=== PATIENT | female | born 1975 | race Caucasian/White ===

== ENCOUNTER → 2019-04-20 | Emergency (ER) | payer OTHER ==
[~2019-04-20] VITALS: Ht 172.7 cm; Wt 59.0 kg
[~2019-04-20] MED LIST: ALDACTONE25 MG PO; BENADRYL25 MG PO; EFFEXOR XR37.5 MG PO; HYDROCODON-ACE1 EA11 PO; PEPCID20 MG PO; XYZAL5 MG PO
== END ==
LOC: ED 21:30
DX: T78.1XXA Other adverse food reactions, not elsewhere classified, initial encounter (principal); Z91.018 Allergy to other foods; Z91.041 Radiographic dye allergy status; Z88.1 Allergy status to other antibiotic agents; Z79.899 Other long term (current) drug therapy
CPT/HCPCS: 96374; 96375; 99283-25; J1200; J2930

== ENCOUNTER 2022-03-14 05:45 | Day surgery (SDC) | payer OTHER ==
[~2022-03-14] VITALS: Ht 172.7 cm; Wt 61.4 kg
[~2022-03-14 05:45] MED LIST changes: +PREDNISONE20 MG PO
--- NOTE | 2022-03-14 09:34 | NUR ---
03/14/22 0934 Xiomara Rose 0928 PT TO PACU SLEEPING WITH ORAL AIRWAY IN PLACE. O2 ON VIA MASK FOGGING NOTED IN MASK.
--- NOTE | 2022-03-14 13:05 | NUR ---
1005- PATIENT BACK TO DAY SURGERY. REPORT RECIEVED FROM GURPREET JONES. PATIENT IS DROWSY. BREATHING EQUAL AND UNLABORED. OXYGEN SATRUATIONS ABOVE 95% ON ROOM AIR. PATIENT HAS NO BLEEDING FROM NOSE. PATIENT DENIES ANY PAIN OR NAUSEA. IVF INFUSING. WATER AND PUDDING GIVEN TO PATIENT. SCD'S APPLIED. CALL LIGHT WITHIN REACH NO FUTHER NEEDS. AT BEDSIDE. 1010 PATIENT REQUESTING TO BE ABLE TO GO HOME WITH JENNIFER. CALLED OBTAINED ORDERS FOR PHARMACY. 1025 [facility] CALLED.
--- NOTE | 2022-03-14 14:34 | OR ---
[facility] [address], [place] [address] Signed DATE OF OPERATION: 03/14/2022 SURGEON: Shannon Ren MD PREOPERATIVE DIAGNOSES: 1. Persistent acute sinusitis. 2. Chronic frontal sinusitis. 3. Chronic ethmoiditis. 4. Chronic sphenoiditis. 5. Chronic maxillary sinusitis. POSTOPERATIVE DIAGNOSES: 1. Persistent acute sinusitis. 2. Chronic frontal sinusitis. 3. Chronic ethmoiditis. 4. Chronic sphenoiditis. 5. Chronic maxillary sinusitis. PROCEDURES: 1. Endoscopic frontal ethmoidectomy, 79512-78. 2. Endoscopic bilateral sphenoidotomies, 44323-85. 3. Bilateral maxillary antrostomies, endoscopic, 99778-72. INDICATIONS: This patient has a history of recurring sinus infections and then beginning a couple of months ago the patient had acute episode of paranasal pain, headaches, purulent discharge, and increased nasal obstruction and all the symptoms of acute sinusitis. The patient has been tried on multiple antibiotics and currently is on her sixth antibiotic with prednisone and has failed to clear. The patient also has progressive nasal obstruction and sinus headaches. She has known inhalant allergies and is currently on immunotherapy and taking decongestants, antihistamines, and irrigating and also uses nasal steroid spray and despite that her disease has worsened. CT scan performed had marked changes from a year ago showing blockage in the ethmoids and the maxillary sinuses. Because of the failure to respond medically, above procedures were indicated. DESCRIPTION OF PROCEDURE: The patient was placed in the supine position, had an orotracheal intubation, was placed under general anesthesia. The left side was approached first. A 1.5 mL, 1% lidocaine with 1:200,000 epinephrine was injected in the uncinate process in the anterior portion of middle turbinate. The anterior inferior portion of the middle turbinate was trimmed Electronically Signed By: SHANNON REN MD 03/14/22 1434 PATIENT NAME: SHARON FARLEY OPERATIVE REPORT DATE OF : 79 REPORT #: [id number] PHYSICIAN: SHANNON REN MD PCP: EVELIO YARBROUGH PA-C REPORT IS CONFIDENTIAL AND NOT TO BE RELEASED WITHOUT AUTHORIZATION [facility] [address], [place] [address] Signed away with a Thru-Cut ethmoid punch, Kerrison forceps, and microdebrider. The uncinate process was incised with a sickle knife and then it was removed with backbiting forceps with the Thru-Cut ethmoid punch. A little bit of the anterior fontanelle was removed, mostly posterior fontanelle to open up the maxillary ostium three times bigger than nature. The ethmoid bulla was opened with the curette and then going from air cell to air cell through the lamina of the middle turbinate and the posterior ethmoids and a transethmoidal sphenoidotomy into the larger of the two sphenoid sinuses. Once the ceiling of the sphenoid sinus could be visualized as it was entered low and medial, then that rostrum of the sphenoid was removed with a Kerrison forceps. Switching to a 70-degree scope, then the procedure was carried forward against the base of skull up in the frontal sinus. The frontal sinus was from the ethmoid labyrinth by some sagittal and coronal air cells. These were removed entirely to open up the frontal sinus as much as possible. The frontal sinus was a lateral pneumatization and the digital portion of what was going to be the frontal sinus was opened and removed medially as a small cell. A bit of NasoPore with mupirocin ointment was placed up the nasal cavity. Same thing was done on the right side without much variation at all. Uncinectomy was performed in a similar fashion, the maxillary ostium widened mostly in the posterior fontanelle, but a little bit anteriorly. Complete ethmoidectomy was done in the same fashion as the left. Transethmoidal sphenoidotomy was made into the much smaller sphenoid sinus. Then, the base of skull dissected out, coming anteriorly up into the frontal sinus, the Bee Warerison frontal sinus punch was used to remove the beak of the frontal sinus opening up widely. The entire sinus labyrinth was marsupialized into one common cavity. Estimated blood loss about 100 mL. There were no complications. More NasoPore was placed on the right side. The patient went to the recovery room in good condition. Shannon Ren MD [facility] /[id number] Copies: ~ Electronically Signed By: SHANNON REN MD 03/14/22 1434 PATIENT NAME: SHARON FARLEY OPERATIVE REPORT DATE OF : 79 REPORT #: [id number] PHYSICIAN: SHANNON REN MD PCP: EVELIO YARBROUGH PA-C REPORT IS CONFIDENTIAL AND NOT TO BE RELEASED WITHOUT AUTHORIZATION
--- NOTE | 2022-03-14 14:41 | NUR ---
1045 PATIENT IS ALERT AND ORIENTED. BREATHING EQUAL AND UNLABORED. PATIENT ABLE TO AMBULATE TO THE RESTROOM AND VOID CLEAR AND YELLOW URINE. TOLERATED AMBULATION WELL. 1210 PATIENT DISCHARGE INSTRUCTIONS GIVEN. NO QUESTIONS AT THIS TIME. PATIENT IV D/C'D WNL. PATIENT WAS WHEELED OUT OF FACILITY TO PRIVATE AUTO.
== END 2022-03-14 12:10 | disposition home or self-care (01) ==
LOC: DS 05:45
PROVIDERS: ATTEND Otolaryngology
PROC: 09TU8ZZ Resection of Right Ethmoid Sinus, Via Natural or Artificial Opening Endoscopic (ICD-10-PCS; 2022-03-14)
PROC: 09JY8ZZ Inspection of Sinus, Via Natural or Artificial Opening Endoscopic (ICD-10-PCS; 2022-03-14)
PROC: 09TV8ZZ Resection of Left Ethmoid Sinus, Via Natural or Artificial Opening Endoscopic (ICD-10-PCS; principal; 2022-03-14 07:00)
DX: J01.91 Acute recurrent sinusitis, unspecified (principal); J32.4 Chronic pansinusitis; Z88.8 Allergy status to other drugs, medicaments and biological substances
CPT/HCPCS: J0131; J0330; J0461; J1100; J1885; J2250; J2405; J2704; J2765; J2930; J3010; J7121

== ENCOUNTER 2023-04-23 17:33 | Emergency (ER) | payer OTHER ==
[~2023-04-23] VITALS: Ht 172.7 cm; Wt 64.8 kg
--- OUTSIDE RECORDS SUMMARY | ~2023-04-23 | XMS | Continuity of Care Document ---
Demographics + + + | Address | [address] | | | [place] [address] | + + + | Preferred Language | Unknown | + + + | Marital Status | | + + + | Rastafari Affiliation | Unknown | + + + | Race | White | + + + | Ethnic Group | or | + + + Author + + + | Author | [facility] | + + + | Organization | [facility] | + + + | Address | [address] | | | [place] [address] | + + + | Phone | | + + + Care Team Providers + + + + | Care Bait Digger Name | Role | Phone | + + + + Unavailable | Unavailable | + + + + Unavailable | Unavailable | + + + + Unavailable | Unavailable | + + + + Allergies and Intolerances + + + + + + | date | description | facility | reaction | severity | + + + + + + | (no date) | Urticaria | [facility] | (no reaction) | (no severity) | | [facility] | | | + + + + + + | (no date) | Valacyclovir | [facility] | (no reaction) | (no severity) | | | [facility] | | | + + + + + + | (no date) | Promethazine | [facility] | (no reaction) | (no severity) | | | [facility] | | | + + + + + + | (no date) | Itching | [facility] | (no reaction) | (no severity) | | | [facility] | | | + + + + + + | (no date) | Valacyclovir | [facility] | (no reaction) | (no severity) | | | [facility] | | | + + + + + + | (no date) | valacyclovir | [facility] | (no reaction) | (no severity) | | | [facility] | | | + + + + + + | (no date) | Promethazine | [facility] | (no reaction) | (no severity) | | | [facility] | | | + + + + + + | (no date) | promethazine | [facility] | (no reaction) | (no severity) | | | [facility] | | | + + + + + + | (no date) | Promethazine | [facility] | (no reaction) | (no severity) | | | [facility] | | | + + + + + + | (no date) | Valacyclovir | [facility] | (no reaction) | (no severity) | | | [facility] | | | + + + + + + Encounters No information. Functional Status No information. Immunizations No information. Medications + + + + | date | description | facility | + + + + | 2022-03-15 00:00 | FAMOTIDINE | [facility] | + + + + | 2022-11-02 00:00 | FAMOTIDINE | [facility] | + + + + | 2022-03-15 00:00 | DIPHENHYDRAMINE HCL | [facility] | + + + + | 2022-11-02 00:00 | DIPHENHYDRAMINE HCL | [facility] | + + + + | 2022-03-15 00:00 | SPIRONOLACTONE | [facility] | + + + + | 2022-11-02 00:00 | SPIRONOLACTONE | [facility] | + + + + | 2022-11-02 00:00 | METOCLOPRAMIDE HCL | [facility] | + + + + | 2022-11-02 00:00 | ONDANSETRON | [facility] | + + + + | 2022-03-15 00:00 | predniSONE | [facility] | + + + + | 2022-03-15 00:00 | VENLAFAXINE HCL | [facility] | + + + + | 2022-11-02 00:00 | VENLAFAXINE HCL | [facility] | + + + + | 2022-03-15 00:00 | LEVOCETIRIZINE | [facility] | | | DIHYDROCHLORIDE | | + + + + Problems + + + + | date | description | facility | + + + + | 2016-11-12 00:00 | Pain in pelvis | [facility] | + + + + | 2022-09-19 15:01 | CORPUS LUTEUM CYST OF LEFT | [facility] | | | [facility] | | + + + + | 2022-09-19 15:01 | PELVIC AND PERINEAL PAIN | [facility] | + + + + | 2022-09-19 15:01 | RIGHT LOWER QUADRANT PAIN | [facility] | + + + + | 2022-11-02 00:00 | Migraine headache | [facility] | + + + + | 2022-11-02 15:59 | MIGRAINE, UNSP, NOT | [facility] | | | INTRACTABLE, WITHOUT STATUS | | | | SD | | + + + + | 2022-11-02 15:59 | OTHER SENIOR LIVING (CURRENT) | [facility] | | | DRUG THERAPY | | + + + + | 2022-11-02 15:59 | ALLERGY STATUS TO OTH | [facility] | | | DRUG/MEDS/BIOL SUBST STATUS | | | | | | + + + + Procedures + + + + | date | description | facility | + + + + | 2022-03-14 00:00 | Endoscopic sinus surgery | [facility] | + + + + | 2022-03-14 00:00 | Endoscopic sinus surgery | [facility] | + + + + Results/Labs +--------+--------+ +---------+--------+---------+ | test | date | facility | value | unit | notes | +--------+--------+ +---------+--------+---------+ + + | Result panel 1 | + + + + + + + + + | | 2022-03-13 | [facility] | NEGATIVE | (missing) | (missing) | | (unavailable | 08:25 | [place] [facility] | | | | + + + + + + + + + | Result panel 2 | + + + + + + + + + | | 2022-03-13 | [facility] | NEGATIVE | (missing) | (missing) | | (unavailable | 08:25 | [facility] | | | | + + + + + + + + + | Result panel 3 | + + + + + + + + + | | 2022-03-13 | [facility] | NEGATIVE | (missing) | (missing) | | (unavailable | 08:25 | [facility] | | | | + + + + + + + + + | Result panel 4 | + + + + + + + + + | | 2022-03-13 | [facility] | NEGATIVE | (missing) | (missing) | | (unavailable | 08:25 | [facility] | | | | + + + + + + + + + | Result panel 5 | + + + + + +--------+ + + | | 2022-03-13 | [facility] | 10.1 | (missing) | (missing) | | (unavailable | 09:34 | [facility] | | | | + + + +--------+ + + + + | Result panel 6 | + + + + + +--------+ + + | | 2022-03-13 | [facility] | 4.14 | (missing) | (missing) | | (unavailable | 09:34 | [facility] | | | | + + + +--------+ + + + + | Result panel 7 | + + + + + +--------+ + + | | 2022-03-13 | [facility] | 12.8 | (missing) | (missing) | | (unavailable | 09:34 | [facility] | | | | + + + +--------+ + + + + | Result panel 8 | + + + + + +--------+ + + | | 2022-03-13 | [facility] | 39.2 | (missing) | (missing) | | (unavailable | 09:34 | [facility] | | | | + + + +--------+ + + + + | Result panel 9 | + + + + + +--------+ + + | | 2022-03-13 | [facility] | 94.6 | (missing) | (missing) | | (unavailable | 09:34 | [facility] | | | | + + + +--------+ + + + + | Result panel 10 | + + + + + +--------+ + + | | 2022-03-13 | [facility] | 31.0 | (missing) | (missing) | | (unavailable | 09:34 | [facility] | | | | + + + +--------+ + + + + | Result panel 11 | + + + + + +--------+ + + | | 2022-03-13 | [facility] | 32.7 | (missing) | (missing) | | (unavailable | 09:34 | [facility] | | | | + + + +--------+ + + + + | Result panel 12 | + + + + + +--------+ + + | | 2022-03-13 | [facility] | 12.8 | (missing) | (missing) | | (unavailable | 09:34 | [facility] | | | | + + + +--------+ + + + + | Result panel 13 | + + + + + +-------+ + + | | 2022-03-13 | [facility] | 271 | (missing) | (missing) | | (unavailable | 09:34 | [facility] | | | | + + + +-------+ + + + + | Result panel 14 | + + + + + +--------+ + + | | 2022-03-13 | [facility] | 60.1 | (missing) | (missing) | | (unavailable | 09:34 | [facility] | | | | + + + +--------+ + + + + | Result panel 15 | + + + + + +--------+ + + | | 2022-03-13 | [facility] | 34.2 | (missing) | (missing) | | (unavailable | 09:34 | [facility] | | | | + + + +--------+ + + + + | Result panel 16 | + + + + + +-------+ + + | | 2022-03-13 | [facility] | 5.1 | (missing) | (missing) | | (unavailable | 09:34 | [facility] | | | | + + + +-------+ + + + + | Result panel 17 | + + + + + +-------+ + + | | 2022-03-13 | [facility] | 0.3 | (missing) | (missing) | | (unavailable | 09:34 | [facility] | | | | + + + +-------+ + + + + | Result panel 18 | + + + + + +-------+ + + | | 2022-03-13 | [facility] | 0.3 | (missing) | (missing) | | (unavailable | 09:34 | [facility] | | | | + + + +-------+ + + + + | Result panel 19 | + + + + + + + + + | | 2022-03-13 | [facility] | NEGATIVE | (missing) | (missing) | | (unavailable | 09:36 | [facility] | | | | + + + + + + + + + | Result panel 20 | + + + + + +-------+ + + | | 2022-03-14 | [facility] | 149 | (missing) | (missing) | | (unavailable | 10:14 | [facility] | | | | + + + +-------+ + + + + | Result panel 21 | + + + + + +-------+ + + | | 2022-11-02 | [facility] | 4.9 | (missing) | (missing) | | (unavailable | 16:10:08 | [facility] | | | | + + + +-------+ + + + + | Result panel 22 | + + + + + +--------+ + + | | 2022-11-02 | [facility] | 51.3 | (missing) | (missing) | | (unavailable | 16:10:08 | [facility] | | | | + + + +--------+ + + + + | Result panel 23 | + + + + + +--------+ + + | | 2022-11-02 | [facility] | 39.7 | (missing) | (missing) | | (unavailable | 16:10:08 [facility] | | | | + + + +--------+ + + + + | Result panel 24 | + + + + + +-------+ + + | | 2022-11-02 | [facility] | 5.8 | (missing) | (missing) | | (unavailable | 16:10:08 | [facility] | | | | + + + +-------+ + + + + | Result panel 25 | + + + + + +-------+ + + | | 2022-11-02 | [facility] | 2.6 | (missing) | (missing) | | (unavailable | 16:10:08 [facility] | | | | + + + +-------+ + + + + | Result panel 26 | + + + + + +-------+ + + | | 2022-11-02 | [facility] | 0.6 | (missing) | (missing) | | (unavailable | 16:10:08 [facility] | | | | + + + +-------+ + + + + | Result panel 27 | + + + + + +------+---------+ + | | 2022-11-02 | [facility] | 94 | mg/dL | (missing) | | (unavailable | 16:10:08 | [facility] | | | | + + + +------+---------+ + + + | Result panel 28 | + + + + + +------+---------+ + | | 2022-11-02 | [facility] | 14 | mg/dL | (missing) | | (unavailable | 16:10:08 [facility] | | | | + + + +------+---------+ + + + | Result panel 29 | + + + + + +--------+---------+ + | | 2022-11-02 | [facility] | 0.95 | mg/dL | (missing) | | (unavailable | 16:10:08 [facility] | | | | + + + +--------+---------+ + + + | Result panel 30 | + + + + + +------+ + + | | 2022-11-02 | [facility] | 76 | (missing) | (missing) | | (unavailable | 16:10:08 [facility] | | | | + + + +------+ + + + + | Result panel 31 | + + + + + +---------+ + + | | 2022-11-02 | [facility] | 14.73 | (missing) | (missing) | | (unavailable | 16:10:08 [facility] | | | | + + + +---------+ + + + + | Result panel 32 | + + + + + +--------+ + + | | 2022-11-02 | [facility] | 4.15 | (missing) | (missing) | | (unavailable | 16:10:08 [facility] | | | | + + + +--------+ + + + + | Result panel 33 | + + + + + +-------+ + + | | 2022-11-02 | [facility] | 139 | (missing) | (missing) | | (unavailable | 16:10:08 [facility] | | | | + + + +-------+ + + + + | Result panel 34 | + + + + + +-------+ + + | | 2022-11-02 | [facility] | 3.6 | (missing) | (missing) | | (unavailable | 16:10:08 [facility] | | | | + + + +-------+ + + + + | Result panel 35 | + + + + + +-------+ + + | | 2022-11-02 | [facility] | 101 | (missing) | (missing) | | (unavailable | 16:10:08 | [facility] | | | | + + + +-------+ + + + + | Result panel 36 | + + + + + +------+ + + | | 2022-11-02 | [facility] | 32 | (missing) | (missing) | | (unavailable | 16:10:08 [facility] | | | | + + + +------+ + + + + | Result panel 37 | + + + + + +-------+ + + | | 2022-11-02 | [facility] | 9.6 | (missing) | (missing) | | (unavailable | 16:10:08 [facility] | | | | + + + +-------+ + + + + | Result panel 38 | + + + + + +-------+---------+ + | | 2022-11-02 | [facility] | 9.0 | mg/dL | (missing) | | (unavailable | 16:10:08 | [facility] | | | | + + + +-------+---------+ + + + | Result panel 39 | + + + + + +-------+ + + | | 2022-11-02 | [facility] | 7.1 | (missing) | (missing) | | (unavailable | 16:10:08 | [facility] | | | | + + + +-------+ + + + + | Result panel 40 | + + + + + +-------+ + + | | 2022-11-02 | [facility] | 4.0 | (missing) | (missing) | | (unavailable | 16:10:08 [facility] | | | | + + + +-------+ + + + + | Result panel 41 | + + + + + +-------+ + + | | 2022-11-02 | [facility] | 3.1 | (missing) | (missing) | | (unavailable | 16:10:08 [facility] | | | | + + + +-------+ + + + + | Result panel 42 | + + + + + +--------+ + + | | 2022-11-02 | [facility] | 1.29 | (missing) | (missing) | | (unavailable | 16:10:08 [facility] | | | | + + + +--------+ + + + + | Result panel 43 | + + + + + +--------+ + + | | 2022-11-02 | [facility] | 12.9 | (missing) | (missing) | | (unavailable | 16:10:08 [facility] | | | | + + + +--------+ + + + + | Result panel 44 | + + + + + +-------+ + + | | 2022-11-02 | [facility] | 0.4 | (missing) | (missing) | | (unavailable | 16:10:08 [facility] | | | | + + + +-------+ + + + + | Result panel 45 | + + + + + +------+ + + | | 2022-11-02 | [facility] | 15 | (missing) | (missing) | | (unavailable | 16:10:08 | [facility] | | | | + + + +------+ + + + + | Result panel 46 | + + + + + +------+ + + | | 2022-11-02 | [facility] | 25 | (missing) | (missing) | | (unavailable | 16:10:08 [facility] | | | | + + + +------+ + + + + | Result panel 47 | + + + + + +------+ + + | | 2022-11-02 | [facility] | 51 | (missing) | (missing) | | (unavailable | 16:10:08 [facility] | | | | + + + +------+ + + + + | Result panel 48 | + + + + + +--------+ + + | | 2022-11-02 | [facility] | 38.8 | (missing) | (missing) | | (unavailable | 16:10:08 [facility] | | | | + + + +--------+ + + + + | Result panel 49 | + + + + + +--------+ + + | | 2022-11-02 | [facility] | 93.6 | (missing) | (missing) | | (unavailable | 16:10:08 [facility] | | | | + + + +--------+ + + + + | Result panel 50 | + + + + + +--------+ + + | | 2022-11-02 | [facility] | 31.2 | (missing) | (missing) | | (unavailable | 16:10:08 [facility] | | | | + + + +--------+ + + + + | Result panel 51 | + + + + + +--------+ + + | | 2022-11-02 | [facility] | 33.3 | (missing) | (missing) | | (unavailable | 16:10:08 [facility] | | | | + + + +--------+ + + + + | Result panel 52 | + + + + + +--------+ + + | | 2022-11-02 | [facility] | 12.6 | (missing) | (missing) | | (unavailable | 16:10:08 [facility] | | | | + + + +--------+ + + + + | Result panel 53 | + + + + + +-------+ + + | | 2022-11-02 | [facility] | 239 | (missing) | (missing) | | (unavailable | 16:10:08 | [facility] | | | | + + + +-------+ + + Social History No information. Vital Signs + + + +---------+ | date | measurement | value | units | + + + +---------+ | 2022-03-13 00:00 | BMI | 20.6 | kg/m2 | + + + +---------+ | 2022-03-13 00:00 | height_metric | 172.72 | cm | + + + +---------+ | 2022-03-13 00:00 | height_standard | 68 | in | + + + +---------+ | 2022-03-13 00:00 | weight_metric | 61.36 | kg | + + + +---------+ | 2022-03-13 00:00 | weight_standard | 135.28 | lb | + + + +---------+ | 2022-03-14 00:00 | BP_diastolic | 40 | mmHg | + + + +---------+ | 2022-03-14 00:00 | BP_systolic | 94 | mmHg | + + + +---------+ | 2022-03-14 00:00 | heart_rate | 64 | /min | + + + +---------+ | 2022-03-14 00:00 | o2_saturation | 100 | % | + + + +---------+ | 2022-03-14 00:00 | respiration_rate | 16 | /min | + + + +---------+ | 2022-03-14 00:00 | temperature_metric | 36.72 | C | | | | | | + + + +---------+ | 2022-03-14 00:00 | | 98.1 | F | | | temperature_standar | | | | | d | | | + + + +---------+ | 2022-11-02 00:00 | BMI | 21.7 | kg/m2 | + + + +---------+ | 2022-11-02 00:00 | BP_diastolic | 66 | mmHg | + + + +---------+ | 2022-11-02 00:00 | BP_systolic | 98 | mmHg | + + + +---------+ | 2022-11-02 00:00 | heart_rate | 59 | /min | + + + +---------+ | 2022-11-02 00:00 | height_metric | 172.72 | cm | + + + +---------+ | 2022-11-02 00:00 | height_standard | 68 | in | + + + +---------+ | 2022-11-02 00:00 | o2_saturation | 100 | % | + + + +---------+ | 2022-11-02 00:00 | respiration_rate | 18 | /min | + + + +---------+ | 2022-11-02 00:00 | temperature_metric | 37.06 | C | | | | | | + + + +---------+ | 2022-11-02 00:00 | | 98.7 | F | | | temperature_standar | | | | | d | | | + + + +---------+ | 2022-11-02 00:00 | weight_metric | 64.8 | kg | + + + +---------+ | 2022-11-02 00:00 | weight_standard | 142.86 | lb | + + + +---------+"
--- OUTSIDE RECORDS SUMMARY | ~2023-04-23 | XMS | Continuity of Care Document ---
Demographics + + + | Address | [address] | | | [place] [address] | + + + | Preferred Language | Unknown | + + + | Marital Status | | + + + | Latter-Day Affiliation | Unknown | + + + | Race | White | + + + | Ethnic Group | or | + + + Author + + + | Author | [facility] | + + + | Organization | [facility] | + + + | Address | [address] | | | [place] [address] | + + + | Phone | | + + + Care Team Providers + + + + | Care Personal Lines Insurance Agent Name | Role | Phone | + [...] + | 2022-03-15 00:00 | FAMOTIDINE | [facility] | + + + + | 2022-11-02 00:00 | FAMOTIDINE | [facility] | + + + + | 2022-03-15 00:00 | DIPHENHYDRAMINE HCL | [facility] | + + + + | 2022-11-02 00:00 | DIPHENHYDRAMINE HCL | [facility] | + + + + | 2022-03-15 00:00 | SPIRONOLACTONE | [facility] | + + + + | 2022-11-02 00:00 | SPIRONOLACTONE | [facility] | + + + + | 2022-11-02 00:00 | METOCLOPRAMIDE HCL | [facility] | + + + + | 2022-11-02 00:00 | ONDANSETRON | [facility] | + + + + | 2022-03-15 00:00 | predniSONE | [facility] | + + + + | 2022-03-15 00:00 | VENLAFAXINE HCL | [facility] | + + + + | 2022-11-02 00:00 | VENLAFAXINE HCL | [facility] | + + + + | 2022-03-15 00:00 | LEVOCETIRIZINE | [facility] | | | DIHYDROCHLORIDE | | + + + + Problems + + + + | date | description | facility | + + + + | 2016-11-12 00:00 | Pain in pelvis | [facility] | + + + + | [...] | 2022-11-02 00:00 | Migraine headache | [facility] | + + + + | 2022-11-02 15:59 | MIGRAINE, UNSP, NOT | [facility] | | | INTRACTABLE, WITHOUT STATUS | | | | [place] | | + + + + | 2022-11-02 15:59 | OTHER HALF-WAY (CURRENT) | [facility] | | | DRUG [...] 2022-03-14 00:00 | Endoscopic sinus surgery | [facility] | + + + + | 2022-03-14 00:00 | Endoscopic sinus surgery | [facility] | + + + + Results/Labs +--------+--------+ +---------+--------+---------+ | test | date | facility | value | unit | notes | +--------+--------+ +---------+--------+---------+ + + | Result panel 1 | + + + + + + + + + | | 2022-03-13 | [facility] | NEGATIVE | (missing) | (missing) | | (unavailable | 08:25 | [place] | | | | | ) | [...]
[~2023-04-23 17:33] MED LIST changes: +ONDANSETRON ODT8 MG PO; +REGLAN10 MG PO
[2023-04-23 20:17] LABS: EOSINOPHILS 3.8 % (0-6); HEMATOCRIT 34.8 % (35.0-50.0); HEMOGLOBIN 11.8 g/dL (12.0-18.0); LYMPHOCYTES 36.9 % (24-44); MCH 32.1 (27-36); MCHC 33.9 g/dl (30-36); MCV 94.7 fl (81-99); MONOCYTES 5.7 % (0-12); NEUTROPHILS 52.6 % (39-80); PLATELET COUNT 247 K/uL (140-440); RBC 3.68 M/ul (4.3-5.7)
[2023-04-23 20:26] LABS: INFLUENZA B NAA NEGATIVE (NEGATIVE); RESPIRATORY SYNCYTIAL VIR NAA NEGATIVE (NEGATIVE)
[2023-04-23 20:36] LABS: ALBUMIN 3.9 g/dL (3.4-5.0); ALBUMIN/GLOBULIN RATIO 1.22 (1.1-2.4); ANION GAP 9.9 (7-21); BILIRUBIN, TOTAL 0.2 ng/dL (0.2-1.0); BUN/CREATININE RATIO 20.73 (6.0-28.6); CALCIUM 9.4 mg/dL (8.5-10.1); CREATININE, SERUM 0.82 mg/dL (0.55-1.02); POTASSIUM 3.9 mmol/L (3.5-5.1); PROTEIN, TOTAL 7.1 g/dL (6.4-8.2)
[2023-04-23 22:06] VITALS: BP 122/76
== END 2023-04-23 22:08 | disposition home or self-care (01) ==
LOC: ED 17:33
PROVIDERS: Family Medicine
DX: G96.01 Cranial cerebrospinal fluid leak, spontaneous (principal); Z79.899 Other long term (current) drug therapy; Z91.041 Radiographic dye allergy status; Z88.8 Allergy status to other drugs, medicaments and biological substances
CPT/HCPCS: 36415; 70486; 80053; 84703; 85025; 87502; 90471; 90670; 99283-25; C9803; U0002

== ENCOUNTER 2024-10-07 08:20 | Day surgery (SDC) | payer OTHER ==
[~2024-10-07] VITALS: Ht 172.7 cm; Wt 61.8 kg
[~2024-10-07 08:20] MED LIST changes: -ALDACTONE25 MG PO; -BENADRYL25 MG PO; -EFFEXOR XR37.5 MG PO; -HYDROCODON-ACE1 EA11 PO; +IBLOOD GLUCOSE TEST STRIP 1 EA TEST VI PRN; +LACTATED RINGER'S 1,000 ML IV SCH; +LIDOCAINE HCL 1% 5 ML SDV INJ ONE; +LIDOCAINE HCL 2% 5 ML SDV ONE; -ONDANSETRON ODT8 MG PO; -PEPCID20 MG PO; -PREDNISONE20 MG PO; -REGLAN10 MG PO; -XYZAL5 MG PO; +propofoL 200 MG/20 ML VIAL ONE
[2024-10-07] MEDS ORDERED: NALOXONE HCL 0.4 MG SYR IV PRN (08:30)
[2024-10-07] MEDS ORDERED: IBLOOD GLUCOSE TEST STRIP 1 EA TEST VI PRN (08:30)
[2024-10-07] MEDS ORDERED: ondansetron HCL 4 MG/2 ML VIAL IV PRN (08:30)
--- NOTE | 2024-10-07 09:32 | NUR ---
10/07/[address] PRESENTS TO PATIENT'S BEDSIDE AND IS SPEAKING WITH PATIENT. HER QUESTIONS ARE ANSWERED.
[2024-10-07 10:01] VITALS: BP 108/57
== END 2024-10-07 10:13 | disposition home or self-care (01) ==
LOC: DS 08:20
PROVIDERS: ATTEND Surgery
PROC: 0DB28ZX Excision of Middle Esophagus, Via Natural or Artificial Opening Endoscopic, Diagnostic (ICD-10-PCS; principal; 2024-10-07)
PROC: 0DB78ZX Excision of Stomach, Pylorus, Via Natural or Artificial Opening Endoscopic, Diagnostic (ICD-10-PCS; 2024-10-07)
PROC: 0DB98ZX Excision of Duodenum, Via Natural or Artificial Opening Endoscopic, Diagnostic (ICD-10-PCS; 2024-10-07)
DX: R13.19 Other dysphagia (principal); K29.50 Unspecified chronic gastritis without bleeding; M35.7 Hypermobility syndrome; Z79.899 Other long term (current) drug therapy; Z88.8 Allergy status to other drugs, medicaments and biological substances; Z91.041 Radiographic dye allergy status; Z90.711 Acquired absence of uterus with remaining cervical stump
CPT/HCPCS: 00813; J2003; J2704; J7121